=== PATIENT | female | born 1950 | race Caucasian/White ===

== ENCOUNTER 2018-04-29 01:43 | Outpatient (CLI) | payer MEDICARE, SELFPAY ==
--- NOTE | 2018-04-29 13:57 | DI.MAMMO_ITS ---
SYMPTOM/DIAGNOSIS: SCREENING, Z12.31, MEDICARE PREVENTATIVE VISIT, Z00.00 MAMMOGRAMS: Mammograms were interpreted according to the usual protocol including computer analysis with CAD system, tomosynthesis and C view imaging. Comparison is with the prior examinations. No suspicious microcalcifications are seen. There is an asymmetric breast tissue in the retroareolar region of the right breast seen on the craniocaudad view. This area should be further evaluated with a spot compression view. Ultrasound may be indicated at that time. The skin and axillae are unremarkable. IMPRESSION: Additional views of the right breast as described above. Category 0, breast density C. MQSA ASSESSMENT OF FINDINGS: Incomplete: Needs additional imaging evaluation. Category 0. Patient will receive a letter notifying them of these results. Bi-RADS category C. The breasts are heterogeneously dense, which may obscure small masses.
== END 2018-04-29 02:03 ==
PROVIDERS: PCP Family Medicine; Visit Provider Family Medicine
DX: Z12.31 Encounter for screening mammogram for malignant neoplasm of breast (principal); R92.8 Other abnormal and inconclusive findings on diagnostic imaging of breast
CPT/HCPCS: 77063; 77067

== ENCOUNTER 2018-05-08 01:47 | Outpatient (CLI) | payer MEDICARE, SELFPAY ==
--- NOTE | 2018-05-08 13:50 | DI.COMBO_ITS ---
SYMPTOMS/DIAGNOSIS: F/U MAMMO, ASYMMETRIC RIGHT BREAST TISSUE ADDITIONAL VIEWS OF THE RIGHT BREAST AND RIGHT BREAST ULTRASOUND: Follow-up craniocaudad compression spot film on the right breast was obtained. Nonspecific fibroglandular densities are demonstrated. There is no definite mass. At ultrasound, no definite abnormality is identified; however, there is a questionable 4 x 3 x 5 mm nodule in the 10 o'clock position approximately 5 cm from the nipple. This nodular region is relatively well circumscribed. The findings are not definite; however, follow-up evaluation with a repeat right breast ultrasound in six months is recommended for further review. Category 3, breast density category C. MQSA ASSESSMENT OF FINDINGS: Probably benign. Six month follow-up recommended. Category 3. Patient will receive a letter notifying them of these results. Bi-RADS category C. The breasts are heterogeneously dense, which may obscure small masses.
== END 2018-05-08 02:07 ==
PROVIDERS: PCP Family Medicine; Visit Provider Family Medicine
DX: Z12.31 Encounter for screening mammogram for malignant neoplasm of breast (principal); R92.8 Other abnormal and inconclusive findings on diagnostic imaging of breast; N63.11 Unspecified lump in the right breast, upper outer quadrant
CPT/HCPCS: 76642; 77063; 77067

== ENCOUNTER 2018-11-11 01:16 | Outpatient (CLI) | payer MEDICARE, OTHER, SELFPAY ==
--- NOTE | 2018-11-11 10:16 | DI.US_ITS ---
EXAM: US BREAST RT COMPLETE CLINICAL HISTORY: R92.8 F/U ABNL FINDINGS ON DIAGNOSTIC IMAGING. TECHNIQUE: Ultrasound was performed using standard protocol. COMPARISON: US breast RT limited from 05/08/2018 FINDINGS: When compared with the previous examination, there may be very minimal increase in the size of avascu lar area of nodularity, which measured 4.4 x 2.7 x 4.7 mm on the previous study. Today, the small no dule measures 5.3 x 2.5 x 5.4 mm.
== END 2018-11-11 01:36 ==
PROVIDERS: PCP Family Medicine; Visit Provider Family Medicine
DX: Z12.31 Encounter for screening mammogram for malignant neoplasm of breast (principal); R92.8 Other abnormal and inconclusive findings on diagnostic imaging of breast; N60.81 Other benign mammary dysplasias of right breast
CPT/HCPCS: 76642